=== PATIENT | male | born 1960 | race Hispanic/Latino ===

== ENCOUNTER → 2023-05-05 | Outpatient (REF) | payer OTHER | LOC: US 07:53 | PROVIDERS: ATTEND Family Medicine | DX: R10.9 Unspecified abdominal pain (principal) | CPT/HCPCS: 76700 ==

== ENCOUNTER 2024-10-29 22:02 | Emergency (ER) | payer MEDICARE, OTHER ==
[~2024-10-29] VITALS: Ht 167.6 cm; Wt 73.5 kg
[2024-10-29] MEDS: BELLADONNA ALK/PHENOBARBITAL 5 ML UDC PO STA (23:16)
[2024-10-29] MEDS: MAGNESIUM/ALUMINUM/SIMETHICONE 30 ML UDC PO ONE (23:16)
[2024-10-29] MEDS: LIDOCAINE VISC 2% SOLN 15 ML UDC PO ONE (23:17)
[2024-10-29 23:21] LABS: BASOPHILS % 0.3 % (0.0-1.0); EOSINOPHILS % 0.7 % (0.0-6.0); LYMPHOCYTES % 12.0 % (18.0-39.1); MONOCYTES % 5.4 % (4.4-11.3); NEUTROPHILS % 81.3 % (38.7-80.0); RED CELL DISTRIBUTION WIDTH 13.2 % (11.7-14.4)
[2024-10-29 23:37] LABS: EST GLOMERULAR FILTRATION RATE 87.0 ML/MIN (>=60)
[2024-10-30 00:14] VITALS: TEMP 97.8
[2024-10-30 00:15] VITALS: PULSE 58; RESP 14
[2024-10-30 00:42] VITALS: BP 127/77; PULSE 58; RESP 14; O2SAT 97
== END 2024-10-30 00:35 | disposition home or self-care (01) ==
LOC: ER 22:43
DX: K21.9 Gastro-esophageal reflux disease without esophagitis (principal); R10.13 Epigastric pain; R94.31 Abnormal electrocardiogram [ECG] [EKG]
CPT/HCPCS: 36415; 71045; 80053; 83690; 84484; 85025; 93005; 99284; J2470